=== PATIENT | male | born 1990 | race Caucasian/White ===

== ENCOUNTER 2019-02-03 08:00 | Day surgery (SDC) | payer BC ==
[~2019-02-03] VITALS: Ht 175.3 cm; Wt 140.6 kg
[~2019-02-03 08:00] MED LIST: ACYCLOVIR400 MG PO; ANAPROX DS550 MG PO; CYCLOBENZAPRINE10 MG PO; CYCLOBENZAPRINE5 MG PO; FLONASE ALLERG9.9 ML NAS; IBUPROFEN800 MG PO; NAPROSYN500 MG PO; NORCO 10-325 T1 EACH PO; NORCO 5-325 TA1 EACH PO; OMEPRAZOLE20 M1 PO; PROVENTIL HFA6.7 GM INH; VENTOLIN HFA18 GM INH
--- NOTE | 2019-02-03 12:16 | NUR ---
ICED WATER AND PUDDING GIVEN. SPOUSE AT BEDSIDE. CALL LIGHT W/IN REACH.
--- NOTE | 2019-02-03 12:30 | NUR ---
02/03/19 1230 Jessie Giles 1104 PT ARRIVED IN PACU WITH ORAL AIRWAY IN PLACE. RN HELD CHIN LIFT. NON RESPONSIVE TO VERBAL/TACTILE STIMULI. 1126 PT REACTIVE. ORAL AIRWAY REMOVED. FALLS BACK TO SLEEP WITH STIMULATED. 1130 OXYGEN REMOVED. SATS 92-99% ON RA. 1148 C/O ABD PAIN. UNABLE TO RATE. STATES "I DON'T LIKE THE PAIN SCALE, I FEEL LIKE I DID A HARD AB WORKOUT." FENTANYL 50MCG GIVEN IVP. 1152 C/O NAUSEA. ZOFRAN 4MG GIVEN IVP. 1200 PT STATES "MY PAIN IS ALITTLE BETTER." FENTANYL 50MCG GIVEN IVP. 1210 NO C/O NAUSEA. TAKING SIPS OF WATER. TO DS.
[2019-02-03] MEDS ORDERED: NORCO 7.5-3251 EACH PO (12:33)
--- NOTE | 2019-02-03 13:04 | OR ---
[facility] [address], [place] [address] Signed DATE OF OPERATION: 02/03/2019 SURGEON: Claudia Reece MD PREOPERATIVE DIAGNOSES: 1. Chronic cholecystitis. 2. Biliary colic. POSTOPERATIVE DIAGNOSES: 1. Chronic cholecystitis. 2. Biliary colic. 3. Cholesterolosis. PROCEDURE PERFORMED: Laparoscopic cholecystectomy with intraoperative cholangiogram. ESTIMATED BLOOD LOSS: None. FINDINGS: Les had moderate cholesterolosis. The intraoperative cholangiogram was unremarkable. INDICATION: Les is a 28-year-old gentleman at 5 feet 9 inches, 210 pounds with a body mass index of 45. 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 He has been having significant right upper quadrant and epigastric abdominal pain for many years. He thinks going back to high school. However, he said the last couple months have been absolutely terrible. He said he often has alternating constipation and diarrhea and it is generally yellow. He had been to his primary care provider. Ultrasound was performed and it was somewhat difficult due to his body habitus. However, there was some concern his gallbladder might be full of sludge. The gallbladder wall is not thickened. The common bile duct was unremarkable. He was sent for a HIDA scan and it came back that the gallbladder filled, but his gallbladder ejection fraction was 0. When I injected him with the CCK, it reproduced his symptoms. He said it was quite miserable. Consequently, he was asked to see me with respect to the above. I met with Les in the office. I gave him a [employer] brochure on the gallbladder. We reviewed the location and function of the gallbladder. We reviewed laparoscopic versus open cholecystectomy. He understands expected intraop and postop course. We did review the risks including, but not limited to bleeding, infection, scarring, change in contour of the skin, damage to bowel, damage to main bile duct, incisional hernias and other Electronically Signed By: CLAUDIA REECE MD 02/03/19 1304 PATIENT NAME: LES BRENNAN OPERATIVE REPORT DATE OF : 86 REPORT #: [id number] PHYSICIAN: CLAUDIA REECE MD PCP: KOMAL GALINDO PAC REPORT IS CONFIDENTIAL AND NOT TO BE RELEASED WITHOUT AUTHORIZATION [facility] [address], [place] [address] Signed unforeseen comorbidities. He had expressed understanding and wished to proceed. DESCRIPTION OF PROCEDURE: I have met with Les and his in our preop area. After this, he was taken in the operating room and placed in the supine position under general endotracheal tube anesthesia. He was given preoperative antibiotics along with subcutaneous heparin. SCDs were utilized. He was then prepped and draped in the usual sterile fashion. All trocars were placed in usual positions under direct visualization of the camera without difficulty. His gallbladder was grasped and elevated in the right upper quadrant. Pictures were taken throughout for photodocumentation. The triangle of Calot was dissected free and we placed a clip across the cystic artery and it was divided. Intraoperative cholangiocatheter was inserted into the cystic duct. The intraoperative cholangiogram was then performed. There was no resistance to flow into the duodenum and there were no filling defects noted. The cystic duct stump was secured with a PDS Endoloop and 2 clips were placed to kristen its location. After this, the gallbladder was removed from the gallbladder fossa with the help of the cautery and placed into an EndoCatch bag. We did notice a little blood, it dripped down from the anterior abdominal wall after placing our cholangiocatheter. He had a small hematoma there. That should resolve on its own. We felt this was lateral to the epigastric artery. Afterwards, we used our laparoscopic suturing device and passed 0 Vicryl suture on either side of the fascia and subxiphoid trocar site. This was tied down to close this fascia primarily. The gas was then allowed to escape and all the trocars were removed along with the gallbladder. The gallbladder was opened on the back table by our circulating nurse and pictures were taken. We then closed the fascia of the supraumbilical trocar site with an interrupted [id number] and simple 0 Vicryl sutures. Local anesthetic was injected into all trocar sites. Each trocar site was irrigated and suctioned out until clear. The skin and dermis of each trocar site was closed with interrupted 3-0 subcuticular Monocryl sutures. Dry gauze and tape were applied to all incisions. Les was then awakened from his anesthesia, extubated in the OR, and taken to recovery room in stable condition. Claudia Reece MD ALB/MODL /[id number] Electronically Signed By: CLAUDIA REECE MD 02/03/19 1304 PATIENT NAME: LES BRENNAN OPERATIVE REPORT DATE OF : 86 REPORT #: [id number] PHYSICIAN: CLAUDIA REECE MD PCP: KOMAL GALINDO REPORT IS CONFIDENTIAL AND NOT TO BE RELEASED WITHOUT AUTHORIZATION [facility] [address] [place], [place] [address] Signed cc: MD Komal Monet PA-C Copies: CLAUDIA REECE MD, ERIKA PAC ~ Electronically Signed By: CLAUDIA REECE MD 02/03/19 1304 PATIENT NAME: LES BRENNAN OPERATIVE REPORT DATE OF : 86 REPORT #: [id number] PHYSICIAN: CLAUDIA REECE MD PCP: KOMAL GALINDO REPORT IS CONFIDENTIAL AND NOT TO BE RELEASED WITHOUT AUTHORIZATION
--- NOTE | 2019-02-03 14:45 | NUR ---
LE 1420: PATIENT IS UP TO THE BATHROOM WITH RN STANDBY. PATIENT REPORTS INCREASED PAIN WITH AMBULATION, BUT AMBULATES WELL. DISCHARGE INSTRUCTIONS ARE GIVEN AND PATIENT AND SPOUSE BOTH VERBALIZE UNDERSTANDING. PATIENT DRESSES SELF IN PRESENCE OF SPOUSE AND TRANSFERS SELF TO AND THEN TO PERSONAL VEHICLE AND DOES THAT WELL.
== END 2019-02-03 14:25 | disposition home or self-care (01) ==
LOC: DS 08:00
PROVIDERS: Colon & Rectal Surgery
PROC: BF13YZZ Fluoroscopy of Gallbladder and Bile Ducts using Other Contrast (ICD-10-PCS; 2019-02-03)
PROC: 0FT44ZZ Resection of Gallbladder, Percutaneous Endoscopic Approach (ICD-10-PCS; principal; 2019-02-03 11:30)
DX: K81.1 Chronic cholecystitis (principal); E78.5 Hyperlipidemia, unspecified; E66.9 Obesity, unspecified; K21.9 Gastro-esophageal reflux disease without esophagitis; J45.909 Unspecified asthma, uncomplicated; E66.01 Morbid (severe) obesity due to excess calories; F17.210 Nicotine dependence, cigarettes, uncomplicated; Z88.0 Allergy status to penicillin; Z88.8 Allergy status to other drugs, medicaments and biological substances; Z79.899 Other long term (current) drug therapy; Z68.42 Body mass index [BMI] 45.0-49.9, adult
CPT/HCPCS: 00790; 74300; J0330; J1100; J1644; J1885; J2250; J2405; J2550; J2704; J2765; J3010; J3490; J7120; Q9967